=== PATIENT | female | born 1980 | race Caucasian/White ===

== ENCOUNTER 2017-01-19 10:34 | Emergency (ER) | payer OTHER ==
[~2017-01-19] VITALS: Ht 162.6 cm; Wt 147.4 kg
--- NOTE | ~2017-01-19 | CT2 ---
[facility] A Service of [facility] RADIOLOGY TEXT RESULTS PATIENT: RENETTA SKINNER LOCATION: [facility] : 82 UNIT #: [id number] AGE: [address]: Inge De La Fuente MD SEX: F ORDER DR: [id number] [facility] [address] [place], [place] [address] [id number] MR#: [id number] Acc #: [id number] NAME: RENETTA SKINNER : 1980 SEX: F STUDY DATE/TIME: 01/19/2017 14:05 UNIT: [facility] ROOM: STUDY DESCRIPTION: CT Abd and Pelv W Cont Attending Physician: Inge De La Fuente M.D. Ordering Physician: Carlos Baxter M.D. Primary Care Physician: Dominick Walker M.D. MEDICAL IMAGING REPORT This report is preliminary unless electronic signature is present EXAM CT abdomen and pelvis with contrast 01/19/2017 1405 hours HISTORY 36-year-old woman with complaint of right upper quadrant pain for 2 days. COMPARISON 01/21/2008 TECHNIQUE Helical noncontrasted images were obtained from the lung bases through the pubic symphysis without oral or intravenous contrast. Sagittal and coronal reconstructions were performed. Total exam DLP 3971 mGy-cm. This CT exam was performed with one or more of the following radiation dose reduction techniques: automatic control, adjustment of mA and/or kV according to patient size, and iterative reconstruction. FINDINGS Images through the lung bases are clear. Images through the abdomen are degraded by very large body habitus and the lack of oral and intravenous contrast. There is diffuse low attenuation of the liver consistent with fatty infiltration. Left lobe of the liver is enlarged and wraps around anterior to the spleen, similar to prior study. There is no focal liver lesion. The gallbladder, bile ducts and pancreas appear normal. The right adrenal gland is normal. There is a low-density nodule superior to the left kidney which may connect to the left adrenal gland. This measures 29-43 Hounsfield units and is therefore not a definite adrenal adenoma. It measures 2.5 cm. It does not appear to communicate with the upper pole of the left kidney. This is indeterminate. [facility] A Service of [facility] RADIOLOGY TEXT RESULTS PATIENT: RENETTA SKINNER LOCATION: [facility] : 82 UNIT #: [id number] AGE: [address]: Inge De La Fuente MD SEX: F ORDER DR: The abdominal aorta is normal in caliber. There are tiny mesenteric and retroperitoneal lymph nodes without pathologic nodes. The stomach is contracted and unopacified but appears normal. The small bowel is nondistended. I believe the appendix is normal. There is no distension or wall thickening in the colon. There is no ascites. CT pelvis is negative. There is multilevel degenerative change in the lower thoracic spine. IMPRESSION 1. Exam is limited by large body habitus and lack of oral and intravenous contrast. No definite acute findings are seen in the abdomen or pelvis. 2. The gallbladder and bile ducts appear normal. 3. The right lower quadrant appears normal. No evidence of appendicitis. Dictated by... Radha Taylor M.D. THIS IS AN ELECTRONICALLY VERIFIED REPORT Radha Taylor M.D. at 01/20/2017 9:33 AM QUINTON/benjamin TD: 01/19/2017 20:11 JOB #: [id number] MEDICAL IMAGING REPORT Page 1 of 1 COPY
[~2017-01-19 10:34] MED LIST: ACETAMINOPHEN PO; ALBUTEROL17 G1 IA; BACTRIM DS TABL1 TA1 PO; FLAGYL PO; IBUPROFEN PO; KEFLEX500 MG PO; LORTAB 5/500 TA1 TA1 PO; METRONIDAZOLE PO; MOTRIN600 MG PO; NEXIUM PO; PHENERGAN PO; RONDEC-DM SYRU120 ML PO; ULTRAM PO; VICODIN 5/500 T1 TAB PO; VOLTAREN75 MG PO; ZITHROMAX PO; ZOVIRAX PO
[2017-01-19 11:20] LABS: URINE SOURCE CLEAN CATCH
[2017-01-19 11:23] LABS: URINE APPEARANCE CLEAR; URINE BILIRUBIN NEG (NEG); URINE BLOOD 3+ (NEG); URINE COLOR YELLOW; URINE GLUCOSE 250 MG/DL (NEG); URINE KETONE NEG (NEG); URINE LEUKOCYTE ESTERASE TRACE (NEG); URINE NITRATE NEG (NEG); URINE PH 6.5 (5-8); URINE PROTEIN TRACE (NEG); URINE SPECIFIC GRAVITY 1.024 (1.003-1.035); URINE UROBILINOGEN 0.2 MG/DL (NEG)
[2017-01-19 11:23] LABS: BASOPHIL# 0.1 X10e3 (0-0.3); BASOPHIL% 0.9 % (0-2.5); EOSINOPHIL# 0.1 X10e3 (0-0.7); EOSINOPHIL% 1.7 % (0.0-7.0); HEMATOCRIT 37.9 % (35.0-45.0); HEMOGLOBIN 12.4 gm/dL (12.0-16.0); LYMPHOCYTE# 1.2 X10e3 (1.0-3.5); MEAN CELL VOLUME 88.1 FL (83-96); MEAN CORPUSCULAR HEMOGLOBIN 28.9 PG (28-34); MEAN CORPUSCULAR HGB CONC 32.8 g/dL (30-36); MEAN PLATELET VOLUME 10.2 FL (6.5-11.5); MONOCYTE# 0.3 X10e3 (0-1.0); MONOCYTE% 4.9 % (3.0-12.0); NEUTROPHIL# 5.1 X10e3 (1.5-7.1); NEUTROPHIL% 74.5 % (40-75); PLATELET COUNT 154 X10e3 (140-420); RED CELL DISTRIBUTION WIDTH 13.4 % (11.0-15.5); WHITE BLOOD COUNT 6.8 X10e3 (4.0-10.5)
[2017-01-19 11:24] LABS: DIFF IND NO
[2017-01-19 11:25] LABS: CULTURE INDICATED? YES; U HYALINE CASTS AUWI 0-2 /[LPF]; URINE BACTERIA AUWI 2+ (NEGATIVE); URINE SQUAMOUS EPITHELIAL CELL FEW /[HPF]
[2017-01-19 12:06] LABS: ALBUMIN SERUM 3.7 g/dL (3.5-5.0); BILIRUBIN, DIRECT 0.1 mg/dL (0.0-0.2); BILIRUBIN,INDIRECT 0.2 mg/dL (0.0-0.9); BILIRUBIN,TOTAL 0.3 mg/dL (0.2-2.0); BUN/CREATININE RATIO 16.25; CALCIUM SERUM 9.1 mg/dL (8.4-10.2); CREATININE SERUM 0.8 mg/dL (0.6-1.4); GLOM FILT RATE Estimated 95.6 mL/min (>60); POTASSIUM 3.6 mmol/L (3.5-5.1); PROTEIN TOTAL SERUM 7.7 g/dL (6.0-8.3)
== END 2017-01-19 15:22 | disposition home or self-care (01) ==
LOC: CED 10:34
DX: N39.0 Urinary tract infection, site not specified (principal); R74.8 Abnormal levels of other serum enzymes; F17.200 Nicotine dependence, unspecified, uncomplicated
CPT/HCPCS: 36415; 74177; 80048; 80076; 81003; 82150; 83690; 84703; 85025; 87086; 96361; 96374; 96375; 99284; J2405; Q9967

== ENCOUNTER 2017-02-12 12:10 | Emergency (ER) | payer OTHER ==
[~2017-02-12] VITALS: Ht 162.6 cm; Wt 145.1 kg
== END 2017-02-12 12:39 | disposition home or self-care (01) ==
LOC: CED 12:10
DX: S39.012A Strain of muscle, fascia and tendon of lower back, initial encounter (principal); F17.200 Nicotine dependence, unspecified, uncomplicated; Z79.899 Other long term (current) drug therapy; X58.XXXA Exposure to other specified factors, initial encounter
CPT/HCPCS: 99283